=== PATIENT | male | born 1995 | race Caucasian/White ===

== ENCOUNTER 2021-03-22 13:26 | Outpatient (REF) | payer OTHER, SELFPAY ==
[2021-03-22 14:00] LABS: MANUAL DIFF FLAG NO
[2021-03-22 14:02] LABS: Basophils Absolute Auto 0.1 X10*3/uL (0.0-0.2); Basophils Percent Auto 0.7 % (0-2); Eosinophils Absolute Auto 0.4 X10*3/uL (0.0-0.4); Eosinophils Percent Auto 4.7 % (0-4); Hematocrit 45.7 % (42-52); Hemoglobin 14.7 g/dl (14.0-18.0); Imm Gran Abs Auto 0.02 X10*3/uL (0.00-0.03); Imm Gran Pct Auto 0.2 % (0.0-0.4); Lymphocytes Percent Auto 31.6 % (20-40); Mean Corpuscular HGB Conc 32.2 g/dl (31.0-36.0); Mean Corpuscular Hemoglobin 26.4 pg (27.0-33.0); Mean Corpuscular Volume 82.2 fL (80-98); Mean Platelet Volume 9.3 fL (9.4-12.4); Monocytes Absolute Auto 0.8 X10*3/uL (0.1-1.2); Monocytes Percent Auto 8.6 % (2-11); Neutrophils Absolute Auto 5.1 X10*3/uL (2.0-8.3); Neutrophils Percent Auto 54.2 % (45-73); Platelet Count 271 X10*3/uL (160-400); Red Blood Count 5.56 X10*6/uL (4.60-5.80); Red Cell Distribution Width 13.2 % (11.0-16.0); White Blood Count 9.4 X10*3/uL (4.8-10.8)
[2021-03-22 15:11] LABS: Alanine Aminotransferase 26 U/L (0-40); Albumin Level 4.7 g/dL (3.5-5.0); Alkaline Phosphatase 71 U/L (39-117); Anion Gap 13 (12-20); Aspartate Amino Transferase 17 U/L (5-37); Bilirubin Total 1.2 mg/dL (0.0-1.0); Blood Urea Nitrogen 12 mg/dL (9-16); C Reactive Protein 0.09 mg/dL (< or = 0.50); Calcium 10.1 mg/dL (8.4-10.2); Carbon Dioxide 27 mmol/L (22-29); Chloride 103 mmol/L (96-108); Cholesterol 222 mg/dL; Estimated Glomerular Filt Rate > 60; Glucose Random 92 mg/dL (60-115); Potassium 4.2 mmol/L (3.3-5.1); Sodium 139 mmol/L (135-145); Total Protein 7.5 g/dL (6.5-8.0)
[2021-03-22 15:29] LABS: Vitamin B12 838 pg/mL (200-900)
[2021-03-24 11:30] LABS: Anti Nuclear Antibody Screen NEGATIVE (NEGATIVE)
== END 2021-03-22 13:27 | disposition home or self-care (01) ==
LOC: HO.LAB 13:26
PROVIDERS: PCP Internal Medicine; Visit Provider Internal Medicine
DX: R51.9 Headache, unspecified (principal); M79.10 Myalgia, unspecified site; R53.83 Other fatigue
CPT/HCPCS: 36415; 80053; 82465; 82550; 82607; 84443; 85025; 86038; 86039; 86140

== ENCOUNTER → 2021-03-29 11:22 | Outpatient (REF) | payer OTHER, SELFPAY ==
--- NOTE | 2021-03-29 11:26 | CA_ITS ---
Transthoracic Echocardiogram Patient (Last, First, Middle): Kash Ellis, Gender: Male Date of : 1995 Age: 25 Procedure Date: 03/29/2021 Procedure Type: Transthoracic Echocardiogram Location: OP Height: 182.88 cm Weight: 74.84 kg BSA: 1.96 m2 Heart Rate: bpm BP: 12 / 60 mmHg Analog Circuit Designer: Referring MD: Agapito Diaz MD Symptoms: R94.31 ABNORMAL EKG Study Quality: Good ECG Rhythm: Sinus Conclusions: - The left ventricular systolic function is normal. The calculated ejection fraction is 56% by biplane method. - No obvious valvular pathology seen on this study. Findings Left Ventricle Normal left ventricular cavity size. There is normal left ventricular wall thickness. The left ventricular systolic function is normal. The calculated ejection fraction is 56% by biplane method. There is no evidence of regional wall motion abnormalities. Diastolic function is normal for age. Right Ventricle Normal right ventricular cavity size and systolic function. Atria Both atria are normal in size. Aortic Valve There is a normal trileaflet aortic valve. There is no aortic valve stenosis. There is no aortic valve regurgitation. Mitral Valve The mitral valve appears normal. There is no mitral valve regurgitation. There is no mitral valve stenosis. Pulmonic Valve The pulmonic valve was not well visualized. Tricuspid Valve Normal tricuspid valve structure. There is trace tricuspid valve regurgitation. The pulmonary artery systolic pressure is normal. Great Vessels The aortic annulus, sinuses of valsalva, and asc aorta are normal in size. Venous The inferior vena cava is normal in size and collapses greater than 50% with inspiration. Pericardium/Pleural There is no evidence of pericardial effusion. Prior Study Comparison No prior study available for comparison. Recommendations, Care & Conclusions No obvious valvular pathology seen on this study. Measurements 2D Linear Measurements IVSd: 0.76 0.6-0.9/0.6-1.0 cm LVIDd: 5.31 3.9-5.3/4.2-5.9 cm LVIDd Index: 2.71 2.4-3.2/2.2-3.1 cm/m2 LVIDs: 3.51 2.0-3.6 cm LVPWd: 0.85 0.7-1.1 cm Ao Root: 2.90 2.1-3.5 cm LA Diam: 3.40 2.7-3.8/3.0-4.0 cm LAIDs Index: 1.73 1.5-2.3 cm/m2 LV Mass: 189.22 67-162/88-224 g LV Mass Index: 96.54 43-95/49-115 g/m2 LVOT Diam: 2.20 3.0+(-)1.3 cm 2D Systolic Function EF 4C: 59.10 >55% EF 2C: 55.40 >55% EF BiP: 56.10 >55% Mitral Valve MV Pk E: 0.93 MV PK A: 0.51 MV Decel Time: 181.00 E/A: 1.80 E'Lateral: 20.90 E'Medial: 14.30 E/E' Med: 6.50 E/E' Lat: 4.40 PHT: 53.00 MVA PHT: 4.15 Decel [place]: 5.13 Aortic Valve AoV Pk Paul: 1.31 AoV Mn Paul: 0.86 AoV VTI: 0.29 AoV Pk Grad: 7.00 Aov Mn Grad: 4.00 BRANDI Cont.VTI: 2.24 LVOT LVOT Pk Paul: 0.76 LVOT Mn Paul: 0.53 LVOT VTI: 0.17 LVOT Pk Grad: 2.00 LVOT Mn Grad: 1.00 LVOT Diam: 2.20 LVOT Area: 3.80 Diastolic Function MV Pk E: 0.93 MV Pk A: 0.51 E/A: 1.80 E'Medial: 14.30 E/E' Med: 6.50 E' Laterial: 20.90 E/E' Lat: 4.40 Right Ventricle TAPSE (mm): 26.00 TVS' Paul: 14.00 Tricuspid Valve TR Pk Paul: 1.88 TR Pk Grad: 14.00 Great Vessels Aorta Ao Root-2D: 2.90 2.0-3.7 cm Ao Asc: 3.00 2.1-3.4 cm Pulmonary Valve PV Pk Paul: 1.08 Peak PV Grad: 5.00 Updated in Other Vendor System with Status of Final Alan Lind MD electronically signed on 03/29/2021 12:29:36 PM with status of Final
== END ==
LOC: HO.CARD 11:22
PROVIDERS: Visit Provider Internal Medicine
DX: R94.31 Abnormal electrocardiogram [ECG] [EKG] (principal)
CPT/HCPCS: 93306

== ENCOUNTER 2021-04-28 17:17 | Emergency (ER) | payer OTHER, SELFPAY ==
--- NOTE | ~2021-04-28 | CT_ITS ---
EXAMINATION: CT CERVICAL SPINE WITHOUT CONTRAST CLINICAL INFORMATION: Atraumatic pain COMPARISON: None TECHNIQUE: Helical imaging with coronal and sagittal reformatted images. This CT examination was performed using dose optimization techniques as appropriate, variously including the following: *Automated exposure control *Adjustment of mA and/or kV according to patient size (this includes techniques or standardized protocols for targeted exams where dose is matched to indication/reason for exam; i.e. extremities or head) *Use of iterative reconstruction technique DLP: 519 mGy-cm FINDINGS: There is no fracture or dislocation. Lack of intrathecal contrast limits this exam. No listhesis or compression injury. No significant degeneration. Evaluation on the cord or evaluation of disc material, evaluation of the cord itself or nerve roots or effect on the nerve roots cannot be delineated on this study due to lack of intrathecal contrast. Apical scarring is noted. Disc protrusion cannot be excluded at C3-C4,C4 5, C5-C6 and C6-C7 CT/CT cervical spine wo con IMPRESSION: Limited exam. No intrathecal contrast is given and therefore evaluation for soft tissue cannot be ascertain chest such as cord, disc, nerve roots. Given the several areas of disc protrusion cannot be excluded There is no fracture or dislocation. There is no listhesis. No significant degeneration. Further evaluation is warranted recommendation is MRI
--- NOTE | ~2021-04-28 | US_ITS ---
EXAMINATION: US SCROTUM CLINICAL INFORMATION: Testicular pain.. COMPARISON: None TECHNIQUE: A sonogram of the scrotum was performed assessing jj-scale appearance and color Doppler flow. Spectral Doppler analysis of the arterial and venous flow were performed in the testes bilaterally. FINDINGS: RIGHT: Right testicle measures 5.3 x 2.5 x 3.5 cm, volume 24 mL. No focal testicular parenchymal lesions are visualized. Spectral Doppler analysis of the arterial and venous flow is normal in the right testis. Right epididymal head is normal in size. No right hydrocele or varicocele is seen. Right epididymal Doppler flow is normal. LEFT: Left testicle measures 5.1 x 2.5 x 3.5 cm, volume 23 mL. No focal testicular parenchymal lesions are visualized. Spectral Doppler analysis of the arterial and venous flow is normal in the left testis. Left epididymal head is normal in size. No left hydrocele or varicocele is seen. Left epididymal Doppler flow is normal. There is a small calcification adjacent to the inferior pole of the testicle in the left scrotal sac. US/US scrotum doppler IMPRESSION: Normal ultrasound of the scrotal sac.
--- NOTE | ~2021-04-28 | XR_ITS ---
EXAMINATION: XR SHOULDER, LEFT XR SHOULDER, RIGHT CLINICAL INFORMATION: Atraumatic bilateral shoulder pain. COMPARISON: None TECHNIQUE: 3 views of each shoulder. FINDINGS: Left shoulder: No fracture or dislocation. The glenohumeral joint is well aligned. The acromioclavicular joint is intact. The visualized lung is clear. The visualized ribs are intact. Right shoulder: No fracture or dislocation. The glenohumeral joint is well aligned. The acromioclavicular joint is intact. The visualized lung is clear. The visualized ribs are intact. XR/XR shoulder RT min 2V IMPRESSION: Normal appearance of both shoulders.
--- NOTE | ~2021-04-28 | XR_ITS ---
EXAMINATION: XR SHOULDER, LEFT XR SHOULDER, RIGHT CLINICAL INFORMATION: Atraumatic bilateral shoulder pain. COMPARISON: None TECHNIQUE: 3 views of each shoulder. FINDINGS: Left shoulder: No fracture or dislocation. The glenohumeral joint is well aligned. The acromioclavicular joint is intact. The visualized lung is clear. The visualized ribs are intact. Right shoulder: No fracture or dislocation. The glenohumeral joint is well aligned. The acromioclavicular joint is intact. The visualized lung is clear. The visualized ribs are intact. XR/XR shoulder LT min 2V IMPRESSION: Normal appearance of both shoulders.
--- NOTE | ~2021-04-28 | CT_ITS ---
EXAMINATION: CT ABDOMEN AND PELVIS WITHOUT CONTRAST CLINICAL INFORMATION: Low back pain radiating to abdomen COMPARISON: None TECHNIQUE: Multidetector volumetric imaging was performed from the superior aspect of the liver through the pubic symphysis. Sagittal and coronal reformatted images were obtained on the technologist's workstation. This CT examination was performed using dose optimization techniques as appropriate, variously including the following: *Automated exposure control *Adjustment of mA and/or kV according to patient size (this includes techniques or standardized protocols for targeted exams where dose is matched to indication/reason for exam; i.e. extremities or head) *Use of iterative reconstruction technique DLP: 450 mGy-cm FINDINGS: LUNG BASES: The visualized lung bases are unremarkable. LIVER, GALLBLADDER, AND BILIARY TREE: The liver is normal in size, shape, and attenuation. No focal hepatic lesion or biliary ductal dilatation is present. The gallbladder is unremarkable with no evidence of radiopaque gallstones, gallbladder wall thickening, or obvious pericholecystic inflammatory changes. PANCREAS: Unremarkable. SPLEEN: Unremarkable. ADRENAL GLANDS: Unremarkable. KIDNEYS AND URETERS: The kidneys are normal in size, shape, and attenuation. No hydronephrosis, hydroureter, or calculi seen. No perinephric stranding. BLADDER: Bladder wall demonstrates symmetric thickening which may be due to underfilling. GASTROINTESTINAL TRACT: The small and large bowel are unremarkable. The appendix is most likely unremarkable, but there certainly no changes of appendicitis. ABDOMINAL WALL: No significant hernia is appreciated. LYMPH NODES: No retroperitoneal lymphadenopathy seen. VASCULAR: Unremarkable. PELVIC VISCERA: Prostate and seminal vesicles appear unremarkable. OSSEOUS STRUCTURES: Unremarkable. CT/CT abdomen pelvis wo con IMPRESSION: 1. A significant abnormality is not seen in a cause for the patient's low back pain has not been found. 2. The bladder wall demonstrates symmetric thickening but the bladder is underfilled.
[2021-04-28 17:39] VITALS: BP 133/76; PULSE 72; RESP 19; TEMP 36.7; O2SAT 98; BMI 23.8
[2021-04-28] MEDS: NaPROXEN 500 MG TABLET PO (19:50)
[2021-04-28] MEDS: diazePAM 5 MG TABLET PO (19:51)
[2021-04-28 20:00] LABS: Appearance Urine CLEAR; Glucose Urine UA NEG (NEG); Leukocyte Esterase Urine NEG (NEG); Nitrite Urine NEG (NEG); Urine Blood NEG (NEG); Urine Ketones NEG (NEG); Urine Protein NEG (NEG-TRACE)
[2021-04-28 20:03] LABS: Color Urine YELLOW
--- NOTE | 2021-04-28 20:09 | ED_ITS ---
HPI - General Adult General Chief complaint: General Medical Stated complaint: BODY ACHES Time Seen by Provider: 04/28/21 19:18 Source: patient and family (Significant other) Mode of arrival: ambulatory Limitations: language barrier (Prydeinig-speaking) History of Present Illness HPI narrative: 25-year-old male who is Prydeinig-speaking with no significant past medical history presenting to the ED with his significant other at bedside with multiple complaints which include joint pains at the neck, bilateral shoulders and lower back that is chronic although worse in the past week since he started a new job where he standing for prolonged periods of time. He reports that he intermittently has numbness to his bilateral legs. He also reports that he has been seen by multiple providers in the past for his chronic neck/back pain and he has had blood work but no imaging and has had physical therapy and chiropractic therapy and no symptomatic relief. He is only taking Motrin and Tylenol [id number] no other medications. He also reports that the back pain is now radiating to his lower abdomen and he has had testicular pain intermittently over the past few days. He denies any fevers, chills, dizziness, headaches, chest pain or shortness of breath, dyspnea exertion, orthopnea, nausea/vomiting/diarrhea constipation, black or bloody stools, dysuria, hematuria, abnormal penile discharge, abnormal rashes to the penis, thoughts of STDs, urinary/bowel incontinence, saddle anesthesia, IV drug use, recent travel or sick contacts or any other symptoms complaints concerns or injuries at this time. MD complaint: Multiple complaints Onset (ago): week(s) (For the past week worse today) Related Data Previous Rx's Medication Instructions Recorded diazepam 10 mg tablet (Valium) 10 mg PO TID PRN #10 tab 04/28/21 naproxen 500 mg tablet 500 mg PO BID PRN #14 tab 04/28/21 Allergies Allergy/AdvReac Type Severity Reaction Status Date / Time No Known Allergies Allergy Verified 04/28/21 17:39 Review of Systems Review of Systems: Constitutional : No Weight loss, No Fever, No Chills, No Night Sweats, No Fatigue, No Malaise ENT/Mouth : No Hearing loss, No Ear Pain, No Nasal Congestion, No Sinus Pain, No Hoarseness, No sore throat, No Rhinorrhea, No Swallowing Difficulty Eyes: No Eye Pain, No Swelling, No Redness, No Foreign Body, No Discharge, No Vision Changes Cardiovascular : No Chest Pain, No SOB, No Dyspnea on Exertion, No Orthopnea, No Edema, No Palpitations Respiratory : No Cough, No Sputum, No Wheezing, No Smoke Exposure, No Dyspnea Gastrointestinal : Positive back pain radiating to abdomen, No Nausea, No Vomiting, No Diarrhea, No Constipation, No Hematochezia, No Melena Genitourinary : Positive testicular pain, no irregular bleeding, No Dysuria, No Urinary Frequency, No Hematuria, No Urinary Incontinence, No Urgency, No Flank Pain, No Urinary Flow Changes, No Hesitancy Musculoskeletal : Positive joint pain/neck pain/back pain, No Myalgias, No J oint Swelling Skin : No Skin Lesions, No rash Neuro : No Weakness, No Numbness, No Paresthesias, No Loss of Consciousness, No Dizziness, No Headache Psych : No Anxiety/Panic, No Depression, No SI/HI/AH/VH, No Social Issues, Heme/Lymph: No Bruising, No Bleeding,No Lymphadenopathy Endocrine : No Polyuria, No Polydipsia, No Temperature Intolerance Yes all other systems are reviewed and are negative [facility] Past Medical History Attestation statement: The following information was validated with the patient. Social History Social History Advance Directives: No Advance Directives Information Provided: No Physical Exam Vital Signs: Vital Signs: Last Vital Signs Temp 98.0 F 04/28/21 17:39 Pulse 72 04/28/21 17:39 Resp 19 04/28/21 17:39 BP 133/76 04/28/21 17:39 Pulse Ox 98 04/28/21 17:39 Body Mass Index 23.8 vital signs have been reviewed as normal and appeared to be correct. Blood pressure normal. Heart rate normal. Respiration rate normal. Temperature normal. Oxygen saturation normal. Appearance: Alert. Oriented X3. No acute distress. Head: Normal external exam. Normocephalic. Atraumatic. Eyes: PERRLA. EOMI. Conjunctiva and sclera normal. Eyelids normal. ENT: EAC normal. TM's Normal. Pharynx normal. Uvula midline. Moist mucous membranes. No trismus noted. No drooling noted. No muffled voice noted. Neck: Normal inspection. Neck supple. FROM. No adenopathy. Thyroid Normal. Trachea midline. No meningeal signs. No neck mass noted. Tender to palpation of bilateral paracervical musculature and mid cervical tenderness. No step-offs or deformities noted. Patient neuro intact bilaterally and distally on all 4 extremities. Reflexes intact bilaterally and distally in all 4 extremities. No rashes/lesion/induration/fluctuance or signs of infection noted. No edema noted. CVS: Normal heart rate and rhythm. Heart sound normal. No murmurs noted. Pulses normal throughout. Respiratory: No respiratory distress. Painless inspiration. Breath sounds normal. No wheezes/rales/rhonchi noted. Chest nontender. No accessory muscle usage noted or decreased air movement noted. Abdomen: Soft and mild tenderness to palpation suprapubically. Bowel sounds normal in all 4 quadrants. No distention noted. No organomegaly noted. No visible injury noted. Back: No CVA tenderness. Full range of motion noted. No obvious deformities, or edema. Mild para-spinal muscular tenderness from lumbar region to coccyx. Full ROM in back and lower extremities. 5/5 strength hip extension/flexion, abduction, adduction. Mild Lumbar pain with hip flexion against resistance. Straight leg raise test negative on right; Straight leg raise test negative on left; Reflexes normal ankle and knee bilaterally; EHL motor strength normal bilaterally. No rashes/lesion/induration/fluctuance or signs infection noted. : Chaperoned by SHRAVAN Thornton . Normal external exam. No masses/lumps/ecchymosis/edema/erythema/lacerations/lesions/vesicles/induration or tenderness noted. No hernia noted. No inguinal lymphadenopathy noted. Normal penis free of discharge. The scrotum is normal. Testicles are both descended bilaterally and appear normal. No hydrocele or scrotal mass/swelling noted. No varicocele. Epididymides normal. No blue dot sign. Skin: Skin warm and dry. Normal skin color. Normal skin turgor. No rashes/lesions/lacerations noted. Extremities: Patient with tenderness palpation to bilateral shoulders although he has full range of motion no obvious tendon or ligamentous injury. No upper extremity edema. Otherwise all other extremities Extremities exhibit normal range of motion and nontender. Neuro: Oriented X 3. No motor deficit. No sensory deficit. Reflexes normal. Patient has a normal steady gait. Course Course Course Narrative: 19:30pm - 25-year-old male who is Prydeinig-speaking with no significant past medical history presenting to the ED with his significant other at bedside with multiple complaints which include joint pains at the neck, bilateral shoulders and lower back that is chronic although worse in the past week since he started a new job where he standing for prolonged periods of time. He reports that he intermittently has numbness to his bilateral legs. He also reports that he has been seen by multiple providers in the past for his chronic neck/back pain and he has had blood work but no imaging and has had physical therapy and chiropractic therapy and no symptomatic relief. He is only taking Motrin and Tylenol [id number] no other medications. He also reports that the back pain is now radiating to his lower abdomen and he has had testicular pain intermittently over the past few days. Plan: Gonorrhea/chlamydia urine, UA, scrotal Doppler ultrasound, x-rays of bilateral shoulders, CT scan of abdomen pelvis without IV contrast, CT scan of cervical spine without contrast. Provide 500 mg of naproxen and 5 mg of Valium then re-evaluate. Reevaluation(s) Reevaluation #1: UA within normal limits no evidence of UTI. CT scan abdomen pelvis with IV contrast within normal limits no acute processes are noted. Scrotal ultrasound negative. Bilateral shoulder x-rays within normal limits no acute processes are noted. Therefore will DC home with instructions to follow up with PCP and ask for referral for relay telegrapher along with symptomatic treatment instructions return if any new or worsening symptoms to continue chiropractic therapy and physical therapy and to return if any new or worsening symptoms. Time: 21:01 Medical Decision Making Medical Records Medical records reviewed: Yes I reviewed the patient's medical records. Lab Data Lab results reviewed: Yes I reviewed the patient's lab results. Labs: Lab Results 04/28/21 Range/Units 19:42 Urine Color YELLOW Urine Appearance CLEAR Urine pH 7.0 (5.0-8.0) Ur Specific [place] 1.020 (1.005-1.025) Urine Protein NEG (NEG-TRACE) MG/DL Urine Glucose (UA) NEG (NEG) MG/DL Urine Ketones NEG (NEG) MG/DL Urine Blood NEG (NEG) Urine Nitrite NEG (NEG) Ur Leukocyte Esterase NEG (NEG) Imaging Data Bilateral shoulder x-ray: Attestation: I personally reviewed and interpreted this imaging study as follows: Radiologist's impression: FINDINGS: Left shoulder: No fracture or dislocation. The glenohumeral joint is well aligned. The acromioclavicular joint is intact. The visualized lung is clear. The visualized ribs are intact. Right shoulder: No fracture or dislocation. The glenohumeral joint is well aligned. The acromioclavicular joint is intact. The visualized lung is clear. The visualized ribs are intact. XR/XR shoulder RT min 2V IMPRESSION: Normal appearance of both shoulders.? Abdomen pelvis CT scan without contrast: Attestation: I personally reviewed and interpreted this imaging study as follows: Radiologist's impression: FINDINGS: LUNG BASES: The visualized lung bases are unremarkable.? LIVER, GALLBLADDER, AND BILIARY TREE: The liver is normal in size, shape, and attenuation. No focal hepatic lesion or biliary ductal dilatation is present. The gallbladder is unremarkable with no evidence of radiopaque gallstones, gallbladder wall thickening, or obvious pericholecystic inflammatory changes.? PANCREAS: Unremarkable.? SPLEEN: Unremarkable.? ADRENAL GLANDS: Unremarkable.? KIDNEYS AND URETERS: The kidneys are normal in size, shape, and attenuation. No hydronephrosis, hydroureter, or calculi seen. No perinephric stranding. ? BLADDER: Bladder wall demonstrates symmetric thickening which may be due to underfilling.? GASTROINTESTINAL TRACT: The small and large bowel are unremarkable. The appendix is most likely unremarkable, but there certainly no changes of appendicitis.? ABDOMINAL WALL: No significant hernia is appreciated.? LYMPH NODES: No retroperitoneal lymphadenopathy seen. VASCULAR: Unremarkable. PELVIC VISCERA: Prostate and seminal vesicles appear unremarkable.? OSSEOUS STRUCTURES: Unremarkable.? CT/CT abdomen pelvis wo con IMPRESSION: 1.? A significant abnormality is not seen in a cause for the patient's low back pain has not been found. 2.? The bladder wall demonstrates symmetric thickening but the bladder is underfilled.? Scrotal duplex ultrasound: Attestation: I personally reviewed and interpreted this imaging study as follows: Radiologist's impression: FINDINGS: RIGHT: Right testicle measures 5.3 x 2.5 x 3.5 cm, volume 24 mL. No focal testicular parenchymal lesions are visualized. Spectral Doppler analysis of the arterial and venous flow is normal in the right testis. Right epididymal head is normal in size. No right hydrocele or varicocele is seen. Right epididymal Doppler flow is normal. LEFT: Left testicle measures 5.1 x 2.5 x 3.5 cm, volume 23 mL. No focal testicular parenchymal lesions are visualized. Spectral Doppler analysis of the arterial and venous flow is normal in the left testis. Left epididymal head is normal in size. No left hydrocele or varicocele is seen. Left epididymal Doppler flow is normal. There is a small calcification adjacent to the inferior pole of the testicle in the left scrotal sac. US/US scrotum doppler IMPRESSION: Normal ultrasound of the scrotal sac. CT scan of cervical spine without contrast: Attestation: I personally reviewed and interpreted this imaging study as follows: Radiologist's impression: FINDINGS: There is no fracture or dislocation. Lack of intrathecal contrast limits this exam. No listhesis or compression injury. No significant degeneration. Evaluation on the cord or evaluation of disc material, evaluation of the cord itself or nerve roots or effect on the nerve roots cannot be delineated on this study due to lack of intrathecal contrast. Apical scarring is noted. Disc protrusion cannot be excluded at C3-C4,C4 5, C5-C6 and C6-C7 CT/CT cervical spine wo con IMPRESSION: Limited exam. No intrathecal contrast is given and therefore evaluation for soft tissue cannot be ascertain chest such as cord, disc, nerve roots. Given the several areas of disc protrusion cannot be excluded ? There is no fracture or dislocation. There is no listhesis. No significant degeneration. ? Further evaluation is warranted recommendation is MRI Discharge Plan Discharge Clinical Impression: Muscle pain Patient Disposition: Home, Self-Care Instructions: Musculoskeletal Pain (ED) Additional Instructions: You should have her doctor refer you to a relay telegrapher continue physical therapy and chiropractic therapy. Return if any new or worsening symptoms. Follow up with your primary care provider. Prescriptions: New diazepam [Valium] 10 mg tablet 10 mg PO TID PRN (Reason: muscle spasm) Qty: 10 RF: 0 naproxen 500 mg tablet 500 mg PO BID PRN (Reason: pain) Qty: 14 RF: 0 Referrals: Agapito Diaz MD [Primary Care Provider] - 2 days Stand Alone Forms: Work/School Release Print Language: Prydeinig
[2021-04-29 01:09] LABS: CT PCR NOT DETECTED (Not Detect.); NG PCR NOT DETECTED (Not Detect.)
== END 2021-04-28 21:50 | disposition home or self-care (01) ==
PROVIDERS: Physician Assistant Medical; Emergency Provider Internal Medicine; PCP Internal Medicine
DX: M79.10 Myalgia, unspecified site (principal); M25.511 Pain in right shoulder; M25.512 Pain in left shoulder; N50.819 Testicular pain, unspecified
CPT/HCPCS: 72125; 73030; 74176; 76870; 81003; 87491; 87591; 93975; 99284

== ENCOUNTER 2021-05-17 14:00 | Outpatient (RCR) | payer OTHER, SELFPAY ==
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
--- NOTE | 2021-06-16 15:06 | MHC.PT.DC ---
[facility] [place] Office [place] Office [place] Office [address] Beena Redmond [address] [phone] F: [phone] F: [phone] F: [phone] F: [phone] Physical Therapy Discharge Report Diagnosis: MYALGIA Date of Surgery: NA Date of Evaluation: 04/19/21 Date of Discharge: 06/16/21 Treatments to Date: 5 Cancellations to Date: No Shows to Date: Discharge Status: Independent with HEP Patient Elected to Stop Recommend MD Follow-up Discharge Summary: Pt SEEN FOR INIT EVAL AND 4 VISITS WITHOUT CHANGE IN PAIN. HAS BEEN EDUCATED ON POSSIBLE BENEFIT FROM PSYCH/PX MANAGEMENT REFERRAL/EVALUATION. SPOKE WITH Pt'S ON 06/16/21 (Pt HAD NOT BEEN SEEN IN PT X 1 MONTH) SHE REPORTS HE HASNT BEEN ABLE TO COME TO PT BECAUSE HE IS BTW. REMINDED OF RECOMMENDATION FOR PSYCH/PAIN MANAGEMENT REFERRAL. WILL DC CHART AT THIS TIME Electronically signed by: YESI MARR PT Please sign and return to therapist. Thank you for your referral.
== END 2021-06-16 15:07 | disposition home or self-care (01) ==
LOC: HO.PT 14:00
PROVIDERS: PCP Internal Medicine; Visit Provider Internal Medicine
DX: M79.10 Myalgia, unspecified site (principal)
CPT/HCPCS: 97110; 97162; 97530; 97535